=== PATIENT | male | born 1960 | race Caucasian/White ===

== ENCOUNTER 2024-06-15 00:03 | Observation (INO) | payer BC ==
[2024-06-15 01:24] LABS: #Basophils Less than 0.03 10x3/uL (0.0-0.2); %Basophils 0.2 % (0.0-1.0); %Eosinophils 1.6 % (0.0-10.0); %Lymphocytes 20.2 % (21.0-51.0); %Monocytes 12.5 % (0.0-10.0); %Neutrophils 65.3 % (42.0-75.0); Hematocrit 40.2 % (42.0-52.0); Hemoglobin 13.4 g/dL (14.0-18.0); Mean Corpuscular HGB CONC 33.3 g/dL (32.0-36.0); Mean Corpuscular Hemoglobin 30.3 pg (27.0-31.0); Mean Platelet Volume 10.2 fL (7.4-10.4); Platelet Count 180 10x3/uL (130-400); RBC Distribution Width 12.1 % (11.5-14.5); Red Blood Cell (RBC) Count 4.42 mill/uL (4.70-6.10)
[2024-06-15 01:42] LABS: ALT (SGPT) 13 U/L (8-55); AST (SGOT) 14 U/L (5-34); Albumin 3.8 g/dL (3.4-4.8); Alkaline Phosphatase 39 U/L (40-110); Anion Gap 13 mmol/L (10-20); BUN (Urea Nitrogen) 19 mg/dL (8.4-25.7); Calc. Creatinine Clearance 0 mL/min (70-130); Calcium 8.3 mg/dL (7.8-10.44); Carbon Dioxide 19 mmol/L (23-31); Chloride 110 mmol/L (98-107); Estimated GFR 86; Globulin 2.7 g/dL (2.4-3.5); Glucose 125 mg/dL (80-115); Potassium 3.9 mmol/L (3.5-5.1); Protein, Total 6.5 g/dL (5.8-8.1); Sodium 138 mmol/L (136-145)
[2024-06-15 04:08] VITALS: BMI 28.3
[2024-06-15] MEDS: Sodium Chloride 0.9% 1,000 ML IV SCH (04:40)
[2024-06-15] MEDS ORDERED: Ondansetron PF 4 MG/2 ML Vial IVP PRN (06:23)
[2024-06-15] MEDS ORDERED: Acetaminophen 325 MG TAB PO PRN (06:23)
[2024-06-15 07:06] LABS: #Basophils Less than 0.03 10x3/uL (0.0-0.2); %Basophils 0.3 % (0.0-1.0); %Eosinophils 0.6 % (0.0-10.0); %Lymphocytes 19.2 % (21.0-51.0); %Monocytes 10.9 % (0.0-10.0); %Neutrophils 68.7 % (42.0-75.0); Hematocrit 37.1 % (42.0-52.0); Hemoglobin 12.5 g/dL (14.0-18.0); Mean Corpuscular HGB CONC 33.7 g/dL (32.0-36.0); Mean Corpuscular Volume 89.2 fL (78.0-98.0); Mean Platelet Volume 10.3 fL (7.4-10.4); Platelet Count 158 10x3/uL (130-400); RBC Distribution Width 12.3 % (11.5-14.5); Red Blood Cell (RBC) Count 4.16 mill/uL (4.70-6.10)
[2024-06-15 07:24] LABS: INR-International Normal Ratio 1.1; PTT 29.5 sec (22.9-36.1); Prothrombin Time 14.6 sec (12.0-14.7)
[2024-06-15] MEDS: Magnesium Citrate 300 ML BOT PO SCH (07:32)
[2024-06-15] MEDS: Metoprolol Tartrate 50 MG TAB PO SCH (08:08)
[2024-06-15] MEDS ORDERED: Metoprolol Tartrate 50 MG TAB PO SCH ×2 (09:00→21:00)
[2024-06-15] MEDS ORDERED: PROPOFOL 40 ML ONE (10:19)
[2024-06-15] MEDS ORDERED: PROPOFOL 20 ML ONE (11:21)
[2024-06-15 12:18] VITALS: TEMP 97.6
[2024-06-15] MEDS: Finasteride 5 MG TAB PO SCH (12:27)
[2024-06-15] MEDS: Flecainide 50 MG TAB PO SCH (12:27)
[2024-06-15 12:34] VITALS: BP 147/85
[2024-06-16] MEDS ORDERED: Tamsulosin HCl 0.4 MG CAP PO SCH (09:00)
== END 2024-06-15 15:05 | disposition home or self-care (01) ==
LOC: ERS 00:03 → SURG A 02:57
PROVIDERS: ADMIT Internal Medicine; ATTEND Internal Medicine
PROC: 0W3P8ZZ Control Bleeding in Gastrointestinal Tract, Via Natural or Artificial Opening Endoscopic (ICD-10-PCS; principal; 2024-06-15)
DX: K91.840 Postprocedural hemorrhage of a digestive system organ or structure following a digestive system procedure (principal); K92.2 Gastrointestinal hemorrhage, unspecified; K62.89 Other specified diseases of anus and rectum; I10 Essential (primary) hypertension; I48.0 Paroxysmal atrial fibrillation; N40.0 Benign prostatic hyperplasia without lower urinary tract symptoms; K40.90 Unilateral inguinal hernia, without obstruction or gangrene, not specified as recurrent; Z98.890 Other specified postprocedural states; Z79.82 Long term (current) use of aspirin; Z79.899 Other long term (current) drug therapy
CPT/HCPCS: 36415; 80053; 85025; 85610; 85730; 86850; 86900; 86901; 99285; C1889; G0378; J2704; J7050